=== PATIENT | male | born 1975 | race Caucasian/White ===

== ENCOUNTER → 2020-03-26 | Outpatient (CLI) | payer BC ==
--- NOTE | 2020-03-26 08:55 | XR ---
EXAMINATION TYPE: XR abdomen 2V DATE OF EXAM: 03/26/2020 HISTORY: Pain. Technique: 2 views of the abdomen are submitted. Comparison: None. Findings: There is no convincing evidence of pneumoperitoneum. The Bowel gas pattern is nonspecific and nonobstructive. No sizable air-fluid levels are seen. No mass effects are noted. No renal calcifications are identified. IMPRESSION: 1. Nonspecific nonobstructive bowel gas pattern
== END | disposition home or self-care (01) ==
LOC: RADXRMAIN 08:18
PROVIDERS: ATTEND Pediatrics
DX: R10.9 Unspecified abdominal pain (principal)
CPT/HCPCS: 74019

== ENCOUNTER → 2022-12-10 | Outpatient (CLI) | payer BC ==
--- NOTE | 2022-12-10 07:34 | US ---
EXAMINATION TYPE: US abdomen complete DATE OF EXAM: 12/10/2022 COMPARISON: NONE CLINICAL HISTORY: R10.13. generalized pain TECHNIQUE: Multiple sonographic images of the abdomen are obtained. FINDINGS: EXAM MEASUREMENTS: Liver Length: 14.4 cm Gallbladder Wall: 0.1 cm CBD: 0.3 cm Spleen: 12.8 cm Right Kidney: 10.6 x 5.2 x 6.2 cm Left Kidney: 11.6 x 4.2 x 5.5 cm Pancreas: Not well visualized due to overlying bowel gas, appears echogenic in appearance Liver: Echogenic Gallbladder: wnl Evidence for sonographic Gonzalez's sign: neg CBD: wnl Spleen: wnl Right Kidney: No hydronephrosis or masses seen Left Kidney: No hydronephrosis or masses seen Upper IVC: wnl Abd Aorta: Proximal obscured by overlying bowel gas The liver is diffusely hyperechoic without evidence of focal lesion. The intrahepatic portion of the IVC is within normal limits. The proximal abdominal aorta is obscured by overlying bowel gas. There is no evidence of cholelithiasis. Common bile duct is unremarkable. The pancreas is not well-visua lized due to overlying bowel gas.. The spleen is unremarkable. Kidneys are symmetric and free of hy dronephrosis. No renal lesions are seen. IMPRESSION: 1. No acute process. 2. Hepatic steatosis.
== END | disposition home or self-care (01) ==
LOC: RADUSWWP 06:45
PROVIDERS: ATTEND Pediatrics
DX: K76.0 Fatty (change of) liver, not elsewhere classified (principal); R10.13 Epigastric pain
CPT/HCPCS: 76700

== ENCOUNTER 2023-02-11 05:49 | Day surgery (SDC) | payer BC ==
[2023-02-11] MEDS ORDERED: LACTATED RINGERS 1,000 ML IV ONE (06:18)
[2023-02-11] MEDS ORDERED: LACTATED RINGERS 1,000 ML IV SCH (06:19)
[2023-02-11 06:35] VITALS: RESP 16; TEMP 97.3
[2023-02-11] MEDS ORDERED: LIDOCAINE 1% (10MG/ML) FOR IV START INTRADERMA ONE (06:36)
[2023-02-11] MEDS ORDERED: PROPOFOL 10 MG/ML 20 ML VIAL IV ONE (07:01)
[2023-02-11] MEDS ORDERED: fentaNYL (PF) 50 MCG/ML 2 ML AMP ONE (07:01)
[2023-02-11] MEDS ORDERED: MIDAZOLAM 2 MG/2 ML VIAL ONE (07:01)
--- NOTE | 2023-02-11 07:21 | P.PCN ---
Date of Procedure: 02/11/23 Procedure(s) Performed: Brief history: Patient is a pleasant 47-year-old white male scheduled for an elective upper endoscopy as well as colonoscopy as a part of evaluation of epigastric pain and screening for colon cancer. He was recently started on Prilosec 20 mg daily and symptoms are gradually improving. Procedure performed: Esophagogastroduodenoscopy with biopsy Colonoscopy Preoperative diagnosis: Epigastric pain Screening for colon cancer Anesthesia: [facility] Procedure: After informed consent was obtained from the patient was brought into the endoscopy unit and IV sedation was administered by anesthesia under continuous monitoring. Initially upper endoscopy was done. The Olympus GF 160 video endoscope was inserted inserted into the mouth and esophagus intubated without any difficulty and was gradually advanced into the stomach and duodenum and carefully examined. The bulb and second part of the duodenum appeared normal. The scope was then withdrawn into the stomach adequately insufflated with air and upon careful examination the antrum had mild antral gastritis and biopsies were done from this area. Mucosa of the body, cardia and fundus appeared normal. Small gastric polyps noted in the gastric body which were biopsied. The scope was then withdrawn into the esophagus. The GE junction was located at 40 cm to the incisors. It appeared regular with 2 superficial erosions consistent with LA grade B reflux esophagitis. Rest of the esophagus appeared normal. Patient tolerated the procedure well. At this time the patient continued to remain sedation. Initial digital rectal examination was normal. Olympus CF 160 video colonoscope was then inserted into the rectum and gradually advanced to the cecum without any difficulty. Careful examination was performed as the scope was gradually being withdrawn. The prep was fair. The cecum, ascending colon, transverse colon, descending colon, sigmoid colon and rectum appeared normal. Retroflexion was performed in the rectum and no lesions were noted. Patient tolerated the procedure well. Impression: 1. Upper endoscopy revealed mild antral gastritis, small gastric polyps and LA grade B reflux esophagitis 2. Colonoscopy was within normal limits with no evidence of colorectal neoplasia Recommendations: Findings of this examination were discussed with the patient as well as his family. He was advised to follow with the biopsy results. In the meantime continue with Prilosec 20 mg daily and follow antireflux measures. Recommend repeat colonoscopy in 10 years.
[2023-02-11 07:40] VITALS: BP 115/71; PULSE 67
== END 2023-02-11 08:10 | disposition home or self-care (01) ==
LOC: ORWHC2ENDO 05:49
PROVIDERS: ATTEND Internal Medicine Gastroenterology
DX: Z12.11 Encounter for screening for malignant neoplasm of colon (principal); K29.50 Unspecified chronic gastritis without bleeding; K21.00 Gastro-esophageal reflux disease with esophagitis, without bleeding; K31.7 Polyp of stomach and duodenum; K76.0 Fatty (change of) liver, not elsewhere classified; Z79.899 Other long term (current) drug therapy
CPT/HCPCS: 88305; 45378; 43239; J2250; J3010; J2704